=== PATIENT | female | born 1980 | race Caucasian/White ===

== ENCOUNTER → 2017-01-14 | Outpatient (CLI) | payer MEDICARE ==
[~2017-01-14] MED LIST: ALL DAY ALLERGY10 MG PO; AMITRIPTYLINE H10 MG PO; BOTOX200 UNIT INJ; CLARITIN 10MG T10 MG PO; CYMBALTA60 MG PO; FLUDROCORTISON0.1 MG PO; GARCINIA CAMBO1 EACH PO; LEVAQUIN500 MG PO; METOPROLOL SUCC25 MG PO; OMEPRAZOLE20 M1 PO; PHENTERMINE H37.5 M1 PO; PRENATAL VIT PO; RESTASIS 0.05%1 EACH OD; TOPAMAX50 MG PO; TRAMADOL HCL50 MG PO; TYLENOL W/CODEIN1 E1 PO; VIT B-12 PO; VIT D PO; ZOLMITRIPTAN5 MG PO
== END ==
LOC: ECHO 12:00
DX: R53.82 Chronic fatigue, unspecified (principal); R60.9 Edema, unspecified; R06.02 Shortness of breath; R06.89 Other abnormalities of breathing
CPT/HCPCS: ECHO; 93306

== ENCOUNTER → 2017-02-02 | Outpatient (CLI) | payer MEDICARE ==
[2017-02-02 17:24] LABS: RED BLOOD COUNT 4.41 M/UL (4.00-5.10); WHITE BLOOD COUNT 6.6 K/UL (4.5-11.0)
[2017-02-02 18:08] LABS: BUN/CREATININE RATIO 13 (0-10)
== END ==
LOC: LAB 14:30
PROVIDERS: Internal Medicine Cardiovascular Disease
DX: Z45.010 Encounter for checking and testing of cardiac pacemaker pulse generator [battery] (principal); I49.5 Sick sinus syndrome; R55 Syncope and collapse; R00.2 Palpitations
CPT/HCPCS: 36415; 71020; 80048; 84703; 85025

== ENCOUNTER → 2017-02-04 | Outpatient (CLI) | payer MEDICARE ==
[~2017-02-04] VITALS: Ht 162.6 cm; Wt 93.0 kg
== END ==
LOC: CATH 07:04
DX: Z45.010 Encounter for checking and testing of cardiac pacemaker pulse generator [battery] (principal); I49.5 Sick sinus syndrome; I34.1 Nonrheumatic mitral (valve) prolapse; E78.5 Hyperlipidemia, unspecified; I70.219 Atherosclerosis of native arteries of extremities with intermittent claudication, unspecified extremity; M48.06 Spinal stenosis, lumbar region; M35.00 Sjogren syndrome, unspecified; R23.3 Spontaneous ecchymoses; R53.82 Chronic fatigue, unspecified; M79.1 Myalgia; G43.901 Migraine, unspecified, not intractable, with status migrainosus; R55 Syncope and collapse; K21.9 Gastro-esophageal reflux disease without esophagitis; Z87.891 Personal history of nicotine dependence; Z79.899 Other long term (current) drug therapy; Z91.19 Patient's noncompliance with other medical treatment and regimen
CPT/HCPCS: C1785; J1200; J2250; J3010; J3370; J7040; J7050

== ENCOUNTER 2020-10-31 15:25 | Emergency (ER) | payer MEDICARE, OTHER ==
[~2020-10-31 15:25] MED LIST changes: +ASPIRIN CHEWABL81 MG PO; +FLUOXETINE HCL10 MG PO; +LASIX20 MG PO; +LIPITOR TAB 1010 MG PO; +NITROSTAT0.4 MG SL; +RANEXA500 MG PO
[2020-10-31 17:00] LABS: HEMOGLOBIN 13.8 gm/dl (12.3-15.3); RED BLOOD COUNT 4.28 M/UL (4.00-5.10); WHITE BLOOD COUNT 6.8 K/UL (4.5-11.0)
[2020-10-31 17:21] LABS: BUN/CREATININE RATIO 12 (0-10)
== END 2020-10-31 19:04 | disposition home or self-care (01) ==
LOC: ER1 15:25
PROVIDERS: Preventive Medicine Occupational Medicine
DX: R07.89 Other chest pain (principal); R60.0 Localized edema
CPT/HCPCS: 71045; 80053; 81001; 82550; 82553; 83690; 83874; 84484; 85025; 85652; 86140; 87086; 93005; 99285; J7030

== ENCOUNTER → 2020-11-04 | Outpatient (CLI) | payer MEDICARE, OTHER ==
[2020-11-04 12:53] LABS: HEMOGLOBIN 14.3 gm/dl (12.3-15.3); RED BLOOD COUNT 4.45 M/UL (4.00-5.10); WHITE BLOOD COUNT 7.3 K/UL (4.5-11.0)
[2020-11-04 13:26] LABS: BUN/CREATININE RATIO 20 (0-10)
[2020-11-13 01:11] LABS: ANTI-EJ AB (RDL) Negative (Negative); ANTI-JO-1 AB (RDL) <20 Units (<20); ANTI-KU AB (RDL) Negative (Negative); ANTI-MDA-5 AB (CADM-140)(RDL) <20 Units (<20); ANTI-MI-2 AB (RDL) Negative (Negative); ANTI-NXP-2 (P140) AB (RDL) <20 Units (<20); ANTI-OJ AB (RDL) Negative (Negative); ANTI-PL-12 AB (RDL) Negative (Negative); ANTI-PL-7 AB (RDL) Negative (Negative); ANTI-PM/SCL-100 AB (RDL) <20 Units (<20); ANTI-SRP AB (RDL) Negative (Negative); ANTI-TIF-1GAMMA AB (RDL) <20 Units (<20); ANTI-U1 RNP AB (RDL) <20 Units (<20); ANTI-U2 RNP AB (RDL) Negative (Negative); ANTI-U3 RNP (FIBRILLARIN)(RDL) Negative (Negative)
== END ==
LOC: LAB 11:41
PROVIDERS: Internal Medicine
DX: D89.89 Other specified disorders involving the immune mechanism, not elsewhere classified (principal); M25.50 Pain in unspecified joint; R76.8 Other specified abnormal immunological findings in serum; R74.8 Abnormal levels of other serum enzymes; I49.5 Sick sinus syndrome; M79.10 Myalgia, unspecified site; R60.9 Edema, unspecified; R83.8 Other abnormal findings in cerebrospinal fluid; R53.83 Other fatigue
CPT/HCPCS: 36415; 80053; 81001; 82330; 82550; 82570; 83516; 83520; 83615; 83874; 84156; 84439; 84443; 85025; 85549; 86235

== ENCOUNTER → 2020-12-08 | Outpatient (CLI) | payer MEDICARE, OTHER | LOC: HEART 5 13:30 | DX: R60.0 Localized edema (principal); R06.02 Shortness of breath; I07.1 Rheumatic tricuspid insufficiency; Z95.0 Presence of cardiac pacemaker | CPT/HCPCS: 93306 ==

== ENCOUNTER → 2020-12-11 | Outpatient (CLI) | payer MEDICARE, OTHER | LOC: CT 11:30 | DX: G44.82 Headache associated with sexual activity (principal) | CPT/HCPCS: 70496; Q9967 ==